=== PATIENT | male | born 1990 | race Caucasian/White ===

== ENCOUNTER 2017-11-19 21:34 | Emergency (ER) | payer OTHER ==
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
[2017-11-19 22:52] VITALS: BP 131/60; PULSE 58; RESP 18; TEMP 97.3
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
[2017-11-19] MEDS ORDERED: LIDOCAINE VISCOUS 2% 15 ML CUP MUCOUS MEM ONE (23:21)
== END 2017-11-19 23:49 | disposition home or self-care (01) ==
LOC: EC 21:34
DX: S01.512A Laceration without foreign body of oral cavity, initial encounter (principal); Y04.2XXA Assault by strike against or bumped into by another person, initial encounter; Y92.69 Other specified industrial and construction area as the place of occurrence of the external cause; Y99.0 Civilian activity done for income or pay
CPT/HCPCS: 70486; 99284